=== PATIENT | female | born 1950 | race Caucasian/White ===

== ENCOUNTER → 2018-06-03 | Outpatient (CLI) | payer OTHER | LOC: EMCIMAGING 10:17 | PROVIDERS: ATTEND Family Medicine | DX: Z13.820 Encounter for screening for osteoporosis (principal); M85.89 Other specified disorders of bone density and structure, multiple sites; Z86.39 Personal history of other endocrine, nutritional and metabolic disease; Z78.0 Asymptomatic menopausal state | CPT/HCPCS: 77080-PN ==